=== PATIENT | male | born 1985 | race Caucasian/White ===

== ENCOUNTER 2017-09-26 22:44 | Emergency (ER) | payer OTHER ==
[~2017-09-26 22:44] MED LIST: OXYC-360 PO; Z.0.NO CURRENT MEDS
[2017-09-26 23:44] VITALS: BP 137/87; PULSE 86; RESP 18; TEMP 98.3; O2SAT 98
--- NOTE | 2017-09-27 00:28 | PD ---
HPI Chief Complaint: Skin Problem Time Seen by Provider: 00:10 Travel History International Travel<30 days: No Contact w/Intl Traveler<30days: No Traveled to known affect area: No History of Present Illness HPI Patient 32-year-old male presents emergency department for evaluation of redness swelling about his right elbow and worsening erythema. Patient states he went to a urgent care clinic the other day he saw physician resident care assistant and was started on Bactrim for possible septic bursitis. States despite that he has been having intermittent fevers to a T-max of 102 at home and the erythema has worsened. He has been taking his Bactrim without significant relief. Endorses only some minimal trauma over his right elbow. No chest pain or shortness breath no nausea no vomiting. PFSH Past Medical History Medical History: Denies Significant Hx Past Surgical History Surgical History: No Previous Surgery Social History Alcohol Use: Yes Tobacco Use: No Substance Use: Yes (POT-LAST SMOKED ON SUNDAY) Allergies-Medications (Allergen,Severity, Reaction): Coded Allergies: No Known Allergies (Verified Adverse Reaction, Unknown, 09/27/17) Reported Meds & Prescriptions Reported Meds & Active Scripts Active Clindamycin (Clindamycin HCl) 150 Mg Cap 300 Mg PO Q6H 10 Days Review of Systems Except as stated in HPI: all other systems reviewed are Neg Physical Exam Narrative GENERAL: Well-developed well-nourished quite pleasant male in no obvious distress SKIN: Focused skin assessment warm/dry. Patient is erythema of the dorsum of his right upper extremity, the erythema spreads to the middle of the forearm as well as the middle of the upper arm. There is some swelling over the olecranon bursa, and is coming to ahead and is about to start draining. It is boggy and fluctuant HEAD: Atraumatic. Normocephalic. EYES: Pupils equal and round. No scleral icterus. No injection or drainage. ENT: No nasal bleeding or discharge. Mucous membranes pink and moist. NECK: Trachea midline. No JVD. CARDIOVASCULAR: Regular rate and rhythm. No murmur appreciated. RESPIRATORY: No accessory muscle use. Clear to auscultation. Breath sounds equal bilaterally. GASTROINTESTINAL: Abdomen soft, non-tender, nondistended. Hepatic and splenic margins not palpable. MUSCULOSKELETAL: No obvious deformities. No clubbing. No cyanosis. No edema. NEUROLOGICAL: Awake and alert. No obvious cranial nerve deficits. Motor grossly within normal limits. Normal speech. PSYCHIATRIC: Appropriate mood and affect; insight and judgment normal. Data Data Last Documented VS Vital Signs Date Time Temp Pulse Resp B/P (MAP) Pulse Ox O2 Delivery O2 Flow Rate FiO2 09/26/17 23:44 98.3 86 18 137/87 (104) 98 Orders Orders Basic Metabolic Panel (Bmp) (09/27/17 00:30) Complete Blood Count With Diff (09/27/17 00:30) Iv Access Insert/Monitor (09/27/17 00:30) Sodium Chloride 0.9% Flush (Ns Flush) (09/27/17 00:30) Clindamycin 900 Mg/Ns Premix (Cleocin 90 (09/27/17 00:30) Wound Culture And Gram Stain (09/27/17 00:30) Ed Discharge Order (09/27/17 02:01) Labs Laboratory Tests Test 09/27/17 00:50 White Blood Count 13.6 TH/MM3 Red Blood Count 4.47 MIL/MM3 Hemoglobin 13.9 GM/DL Hematocrit 39.7 % Mean Corpuscular Volume 88.8 FL Mean Corpuscular Hemoglobin 31.2 PG Mean Corpuscular Hemoglobin Concent 35.1 % Red Cell Distribution Width 12.3 % Platelet Count 214 TH/MM3 Mean Platelet Volume 7.7 FL Neutrophils (%) (Auto) 66.9 % Lymphocytes (%) (Auto) 19.8 % Monocytes (%) (Auto) 11.9 % Eosinophils (%) (Auto) 0.7 % Basophils (%) (Auto) 0.7 % Neutrophils # (Auto) 9.1 TH/MM3 Lymphocytes # (Auto) 2.7 TH/MM3 Monocytes # (Auto) 1.6 TH/MM3 Eosinophils # (Auto) 0.1 TH/MM3 Basophils # (Auto) 0.1 TH/MM3 CBC Comment DIFF FINAL Differential Comment Blood Urea Nitrogen 11 MG/DL Creatinine 1.02 MG/DL Random Glucose 100 MG/DL Calcium Level 9.0 MG/DL Sodium Level 138 MEQ/L Potassium Level 3.4 MEQ/L Chloride Level 104 MEQ/L Carbon Dioxide Level 25.7 MEQ/L Anion Gap 8 MEQ/L Estimat Glomerular Filtration Rate 84 ML/MIN MDM Medical Decision Making Medical Screen Exam Complete: Yes Emergency Medical Condition: Yes Differential Diagnosis Septic bursitis, sepsis, cellulitis Narrative Course Patient room in the emergency department, patient has failed Bactrim therapy and has significant swelling of the bursa and I think it is be well to drain the bursa at this time for source control. It was so done a wound culture was sent. Patient was loaded with IV clindamycin, his labs do show a minimally elevated white blood cell count. But there are no other sirs criteria. Will be discharged on clindamycin. Discussed remove the packing in 24 hours, discussed taking the antibiotics until they are gone and continuing the Bactrim. Discussed if no relief in 48 hours to return to the emergency department discussed if worsening or any other concerning symptoms should return sooner. Diagnosis Primary Impression: Septic bursitis Additional Instructions: Continue the bactrim until gone. If no relief in 48 hours return to the ER. If worsening return to the ER. Med/Other Pt SpecificInfo: Prescription(s) given Scripts Clindamycin (Clindamycin) 150 Mg Cap 300 MG PO Q6H for Infection for 10 Days, #80 CAP 0 Refills Prov: Alvaro Beach MD 09/27/17 Disposition: 01 DISCHARGE HOME Condition: Stable Alvaro Beach MD September 27, 2017 00:28
[2017-09-27] MEDS ORDERED: SODIUM CHLORIDE 0.9% FLUSH 10 ML FLUSH IV FLUSH PRN (00:30)
[2017-09-27] MEDS ORDERED: CLINDAMYCIN 900 MG/NS PREMIX 50 ML IV ONE (00:30)
[2017-09-27 00:56] LABS: AUTOMATED NEUTROPHIL # 9.1 TH/MM3 (1.8-7.7); BASOPHIL # 0.1 TH/MM3 (0-0.2); BASOPHIL % 0.7 % (0.0-2.0); EOSINOPHIL # 0.1 TH/MM3 (0-0.4); EOSINOPHIL % 0.7 % (0.0-4.0); HEMATOCRIT 39.7 % (39.0-51.0); HEMOGLOBIN 13.9 GM/DL (13.0-17.0); LYMPH % 19.8 % (9.0-44.0); LYMPHOCYTE # 2.7 TH/MM3 (1.0-4.8); MEAN CELL VOLUME 88.8 FL (80.0-100.0); MEAN CORPUSCULAR HEMOGLOBIN 31.2 PG (27.0-34.0); MEAN CORPUSCULAR HGB CONC 35.1 % (32.0-36.0); MEAN PLATELET VOLUME 7.7 FL (7.0-11.0); MONO % 11.9 % (0.0-8.0); MONOCYTE # 1.6 TH/MM3 (0-0.9); NEUT % 66.9 % (16.0-70.0); PLATELET COUNT 214 TH/MM3 (150-450); RED BLOOD COUNT 4.47 MIL/MM3 (4.50-5.90); RED CELL DISTRIBUTION WIDTH 12.3 % (11.6-17.2); WHITE BLOOD COUNT 13.6 TH/MM3 (4.0-11.0)
[2017-09-27 01:12] LABS: BICARBONATE 25.7 MEQ/L (21.0-32.0); CREATININE 1.02 MG/DL (0.60-1.30)
[2017-09-27] MEDS ORDERED: CLIN150C14 PO (02:01)
--- NOTE | 2017-09-27 02:02 | PD ---
Physical Exam Date Seen by Provider: September 27, 2017 Time Seen by Provider: 02:01 Data Data Last Documented VS Vital Signs Date Time Temp Pulse Resp B/P (MAP) Pulse Ox O2 Delivery O2 Flow Rate FiO2 09/26/17 23:44 98.3 86 18 137/87 (104) 98 Orders Orders Basic Metabolic Panel (Bmp) (09/27/17 00:30) Complete Blood Count With Diff (09/27/17 00:30) Iv Access Insert/Monitor (09/27/17 00:30) Sodium Chloride 0.9% Flush (Ns Flush) (09/27/17 00:30) Clindamycin 900 Mg/Ns Premix (Cleocin 90 (09/27/17 00:30) Wound Culture And Gram Stain (09/27/17 00:30) Labs Laboratory Tests Test 09/27/17 00:50 White Blood Count 13.6 TH/MM3 Red Blood Count 4.47 MIL/MM3 Hemoglobin 13.9 GM/DL Hematocrit 39.7 % Mean Corpuscular Volume 88.8 FL Mean Corpuscular Hemoglobin 31.2 PG Mean Corpuscular Hemoglobin Concent 35.1 % Red Cell Distribution Width 12.3 % Platelet Count 214 TH/MM3 Mean Platelet Volume 7.7 FL Neutrophils (%) (Auto) 66.9 % Lymphocytes (%) (Auto) 19.8 % Monocytes (%) (Auto) 11.9 % Eosinophils (%) (Auto) 0.7 % Basophils (%) (Auto) 0.7 % Neutrophils # (Auto) 9.1 TH/MM3 Lymphocytes # (Auto) 2.7 TH/MM3 Monocytes # (Auto) 1.6 TH/MM3 Eosinophils # (Auto) 0.1 TH/MM3 Basophils # (Auto) 0.1 TH/MM3 CBC Comment DIFF FINAL Differential Comment Blood Urea Nitrogen 11 MG/DL Creatinine 1.02 MG/DL Random Glucose 100 MG/DL Calcium Level 9.0 MG/DL Sodium Level 138 MEQ/L Potassium Level 3.4 MEQ/L Chloride Level 104 MEQ/L Carbon Dioxide Level 25.7 MEQ/L Anion Gap 8 MEQ/L Estimat Glomerular Filtration Rate 84 ML/MIN [facility] Medical Record Reviewed: Yes Supervised Visit with BALDEMAR: Yes Interpretation(s) Laboratory Tests Test 09/27/17 00:50 White Blood Count 13.6 TH/MM3 Red Blood Count 4.47 MIL/MM3 Hemoglobin 13.9 GM/DL Hematocrit 39.7 % Mean Corpuscular Volume 88.8 FL Mean Corpuscular Hemoglobin 31.2 PG Mean Corpuscular Hemoglobin Concent 35.1 % Red Cell Distribution Width 12.3 % Platelet Count 214 TH/MM3 Mean Platelet Volume 7.7 FL Neutrophils (%) (Auto) 66.9 % Lymphocytes (%) (Auto) 19.8 % Monocytes (%) (Auto) 11.9 % Eosinophils (%) (Auto) 0.7 % Basophils (%) (Auto) 0.7 % Neutrophils # (Auto) 9.1 TH/MM3 Lymphocytes # (Auto) 2.7 TH/MM3 Monocytes # (Auto) 1.6 TH/MM3 Eosinophils # (Auto) 0.1 TH/MM3 Basophils # (Auto) 0.1 TH/MM3 CBC Comment DIFF FINAL Differential Comment Blood Urea Nitrogen 11 MG/DL Creatinine 1.02 MG/DL Random Glucose 100 MG/DL Calcium Level 9.0 MG/DL Sodium Level 138 MEQ/L Potassium Level 3.4 MEQ/L Chloride Level 104 MEQ/L Carbon Dioxide Level 25.7 MEQ/L Anion Gap 8 MEQ/L Estimat Glomerular Filtration Rate 84 ML/MIN Differential Diagnosis MDM: High Differential diagnoses: Abscess, folliculitis, cellulitis, lymphangitis, abrasion, contact dermatitis Narrative Course I was asked by the attending physician to perform an incision and drainage. Procedures Procedure Narrative I&D abscess: After the risks and benefits were discussed the following procedure was performed. The skin is prepped and draped in the usual sterile fashion using Betadine. The abscess is anesthetized with 1% lidocaine with epinephrine. After adequate anesthesia, an 10 blade scalpel is used to make a 1.5 centimeter central incision. Perulant material is expressed and cultured. Loculations are broken up using curved Fatoumata forceps. The wound irrigated with normal saline . The wound is packed open using iodoform gauze. A clean dressing is applied. The patient tolerated the procedure well. There was no complications. Follow-up instructions were given to the patient. Condition: Stable Nacho Franco September 27, 2017 02:02
== END 2017-09-27 02:14 | disposition home or self-care (01) ==
LOC: NEPC 22:44
DX: M71.021 Abscess of bursa, right elbow (principal)
CPT/HCPCS: 10061; 80048; 85025; 86403; 87070; 87186; 96374